=== PATIENT | female | born 1995 | race Caucasian/White ===

== ENCOUNTER 2018-07-05 23:42 | Emergency (ER) | payer SELFPAY ==
[2018-07-06] MEDS ORDERED: LIDOCAINE 1% W/EPI 1:100,000 MDV 50 ML VIAL ONE (00:03)
--- NOTE | 2018-07-06 00:31 | EDPHYS ---
Physician Documentation [facility] Name: Stephanie Machado Age: 22 yrs Sex: Female : 1995 Arrival Date: 07/05/2018 Time: 23:46 Bed 26 Private MD: ED Physician Best Caruso HPI: 07/06 00:26 This 22 yrs old Female presents to ER via Ambulatory with complaints of ps1 Abscess. 00:26 The patient presents with an abscess of the left breast. Description: The affected area ps1 is moderate sized, confluent, localized, well demarcated, fluctuant, hot, raised, swollen, tense. Onset: The symptoms/episode began/occurred 3 day(s) ago. 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 - Social history:: Smoking status: Patient uses tobacco products, smokes one pack cigarettes per day. Patient uses alcohol, but reports only rare drinking. Patient/guardian denies using IV drugs. - Ebola Screening: : No symptoms or risks identified at this time. ROS: 07/06 00:26 Constitutional: Negative for fever, chills, and weight loss, Eyes: Negative for injury, ps1 pain, redness, and discharge, Cardiovascular: Negative for chest pain, palpitations, and edema, Respiratory: Negative for shortness of breath, cough, wheezing, and pleuritic chest pain, Abdomen/GI: Negative for abdominal pain, nausea, vomiting, diarrhea, and constipation, Back: Negative for injury and pain, MS/Extremity: Negative for injury and deformity, Neuro: Negative for headache, weakness, numbness, tingling, and seizure. Skin: Positive for abscess. Exam: 00:26 Constitutional: This is a well developed, well nourished patient who is awake, alert, ps1 and in no acute distress. Head/Face: Normocephalic, atraumatic. Chest/axilla: Normal chest wall appearance and motion. Nontender with no deformity. No lesions are appreciated. Cardiovascular: Regular rate and rhythm. No gallops, murmurs, or rubs. Normal PMI, no JVD. No pulse deficits. Respiratory: Lungs have equal breath sounds bilaterally, clear to auscultation and percussion. No rales, rhonchi or wheezes noted. No increased work of breathing, no retractions or nasal flaring. Abdomen/GI: Soft, non-tender, with normal bowel sounds. No distension or tympany. No guarding or rebound. No evidence of tenderness throughout. MS/ Extremity: Pulses equal, no cyanosis. Neurovascular intact. Full, normal range of motion. 00:26 Skin: abscess, that is moderate sized, of the left breast, with fluctuance, with induration, with pointing, that is obvious. Vital Signs: 00:00 BP 138 / 92; Pulse 80; Resp 18; Temp 98.3(O); Pulse Ox 98% on R/A; Weight 129.27 kg; mg2 Height 5 ft. 10 in. (177.80 cm); Pain 5/10; 00:46 BP 133 / 80; Pulse 84; Resp 18; Temp 98; Pulse Ox 100% on R/A; Pain 0/10; mg2 00:00 Body Mass Index 40.89 (129.27 kg, 177.80 cm) mg2 Procedures: 00:26 I \T\ D: Incision and drainage was performed for an abscess of the left breast ps1 Anesthetized with 8 ml's 1% Lidocaine w/ Epi. Incised with #11 blade. Drained moderate amount purulent fluid. Loculations removed. Abscess cavity explored. Packed with iodoform gauze, Dressing: sterile 4x4 gauze, the patient tolerated the procedure well. MDM: 07/05 23:52 Patient medically screened. ps1 07/06 00:26 Data reviewed: vital signs, nurses notes, and as a result, I will discharge patient. ps1 Administered Medications: No medications were administered Disposition: 07/06/18 00:31 Discharged to Home. Impression: Left breast abscess. - Condition is Stable. - Discharge Instructions: Skin Abscess. - Prescriptions for Keflex 500 mg Oral Capsule - take 1 capsule by ORAL route every 8 hours for 10 days; 30 capsule. Tylenol- Codeine #3 300-30 mg Oral Tablet - take 2 tablet by ORAL route every 6 hours As needed; 30 tablet. Zofran 4 mg Oral Tablet - take 1 tablet by ORAL route every 12 hours As needed; 20 tablet. Bactrim DS 800- 160 mg Oral Tablet - take 1 tablet by ORAL route every 12 hours for 7 days; 14 tablet. - Medication Reconciliation Form, Thank You Letter, Antibiotic Education, Prescription Opioid Use form. - Follow up: Private Physician; When: As needed; Reason: Recheck today's complaints, Continuance of care, Re-evaluation by your physician. Follow up: Emergency Department; When: As needed; Reason: Fever > 102 F, Worsening of condition. - Problem is new. - Symptoms have improved. Signatures: Best Caruso MD MD ps1 Chas Mcdonald RN RN mg2 Corrections: (The following items were deleted from the chart) 00:51 00:31 07/06/2018 00:31 Discharged to Home. Impression: Left breast abscess. Condition mg2 is Stable. Forms are Medication Reconciliation Form, Thank You Letter, Antibiotic Education, Prescription Opioid Use. Follow up: Private Physician; When: As needed; Reason: Recheck today's complaints, Continuance of care, Re-evaluation by your physician. Follow up: Emergency Department; When: As needed; Reason: Fever > 102 F, Worsening of condition. Problem is new. Symptoms have improved. ps1
--- NOTE | 2018-07-06 00:31 | ER ---
Nurse's Notes [facility] Name: Stephanie Machado Age: 22 yrs Sex: Female : 1995 Arrival Date: 07/05/2018 Time: 23:46 Bed 26 Private MD: Diagnosis: Left breast abscess Presentation: 07/05 23:53 Presenting complaint: Patient states: she has abscess in the left breast for 1 week mg2 now. Transition of care: patient was not received from another setting of care. Onset of symptoms was June 2018. Risk Assessment: Do you want to hurt yourself or someone else? Patient reports no desire to harm self or others. Initial Sepsis Screen: Does the patient meet any 2 criteria? No. Patient's initial sepsis screen is negative. Does the patient have a suspected source of infection? No. Patient's initial sepsis screen is negative. Care prior to arrival: None. 23:53 Method Of Arrival: Ambulatory mg2 23:53 Acuity: ISIDRO 4 mg2 Triage Assessment: 07/06 00:01 General: Appears in no apparent distress. comfortable, Behavior is calm, cooperative. mg2 Pain: Complains of pain in left breast. EENT: No deficits noted. Neuro: No deficits noted. Cardiovascular: No deficits noted. Respiratory: Airway is patent Respiratory effort is even, unlabored, Respiratory pattern is regular, symmetrical. GI: No deficits noted. : No deficits noted. Derm: Skin is intact, is healthy with good turgor, Abscess located on left breast is half dollar sized. Musculoskeletal: No deficits noted. 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 - Social history:: Smoking status: Patient uses tobacco products, smokes one pack cigarettes per day. Patient uses alcohol, but reports only rare drinking. Patient/guardian denies using IV drugs. - Ebola Screening: : No symptoms or risks identified at this time. Screenin/02 00:01 Abuse screen: Denies threats or abuse. Denies injuries from another. Nutritional mg2 screening: No deficits noted. Tuberculosis screening: No symptoms or risk factors identified. Fall Risk None identified. Assessment: 00:29 General: Appears in no apparent distress. comfortable, Behavior is calm, cooperative. mg2 Pain: Complains of pain in left breast Pain does not radiate. Pain currently is 5 out of 10 on a pain scale. Quality of pain is described as aching, Pain began gradually, 1 week Is intermittent. Neuro: Level of Consciousness is awake, alert, obeys commands, Oriented to person, place, time, situation. Cardiovascular: Capillary refill < 3 seconds Patient's skin is warm and dry. Respiratory: Airway is patent Respiratory effort is even, unlabored, Respiratory pattern is regular, symmetrical. GI: No deficits noted. : No deficits noted. EENT: No deficits noted. Derm: Skin is intact, is healthy with good turgor, Skin is pink, warm \T\ dry. normal. Derm: Abscess located on left breast is half dollar sized. Musculoskeletal: No deficits noted. Vital Signs: 00:00 BP 138 / 92; Pulse 80; Resp 18; Temp 98.3(O); Pulse Ox 98% on R/A; Weight 129.27 kg; mg2 Height 5 ft. 10 in. (177.80 cm); Pain 5/10; 00:46 BP 133 / 80; Pulse 84; Resp 18; Temp 98; Pulse Ox 100% on R/A; Pain 0/10; mg2 00:00 Body Mass Index 40.89 (129.27 kg, 177.80 cm) mg2 ED Course: 07/05 23:46 Patient arrived in ED. ds1 23:47 Best Lucia MD is Attending Physician. ps1 23:53 Chas Mcdonald, FOZIA is Primary Nurse. mg2 23:55 Triage completed. mg2 07/06 00:01 Arm band placed on. mg2 00:01 Patient has correct armband on for positive identification. Placed in gown. Bed in low mg2 position. Call light in reach. Pulse ox on. NIBP on. 00:31 No provider procedures requiring assistance completed. Patient did not have IV access mg2 during this emergency room visit. Wound care: to abscess located on left breast was cleaned with with i and d done by dr. lucia, dressed with Patient tolerated well. Administered Medications: No medications were administered Outcome: 00:31 Discharge ordered by . ps1 00:50 Discharged to home ambulatory, with family. mg2 00:50 Condition: good 00:50 Discharge instructions given to patient, family, Instructed on discharge instructions, follow up and referral plans. medication usage, Demonstrated understanding of instructions, follow-up care, medications, Prescriptions given X 4. 00:51 Patient left the ED. mg2 Signatures: Desi Avalos ds1 Best Lucia MD MD ps1 Chas Mcdonald RN RN mg2
[2018-07-06 00:58] VITALS: BP 133/80; TEMP 98; O2SAT 100
== END 2018-07-06 00:51 | disposition home or self-care (01) ==
LOC: ER 23:42
DX: N61.1 Abscess of the breast and nipple (principal)
CPT/HCPCS: 99283

== ENCOUNTER 2024-08-21 19:43 | Emergency (ER) | payer BC ==
[2024-08-21] MEDS ORDERED: NA CHLORIDE 0.9% 1,000 ML ONE (20:16)
--- NOTE | 2024-08-21 20:36 | RAD REPORT ---
EXAMINATION: ONE VIEW CHEST XR CLINICAL INDICATION: Female, 29 years old.,Congestion;Cough TECHNIQUE: Frontal chest projection is submitted. Examination is limited by patient positioning and t echnique. COMPARISON: 05/17/2017 FINDINGS: Patchy right hilar airspace opacity. No pneumothorax or sizable effusion. The heart is normal in siz e. Mediastinal contours are unremarkable. IMPRESSION: Patchy right hilar airspace opacity, may relate to developing pneumonia. An underlying endobronchial mass resulting in atelectasis is less likely but would result in a similar appearance.
[2024-08-21] MEDS ORDERED: ACETAMINOPHEN 500 MG TAB ONE (20:47)
[2024-08-21] MEDS ORDERED: CEFTRIAXONE 1000 MG/VIAL ONE (20:47)
[2024-08-21 21:09] LABS: Absolute Basophils 0.1 K/uL (0-0.5); Absolute Eosinophils 0.1 K/uL (0-0.5); Absolute Lymphocytes (CBC) 2.8 K/uL (0.7-4.9); Absolute Monocytes 1.3 K/uL (0.1-1.3); Absolute Neutrophil 10.1 K/uL (1.8-8.0); Basophils % 0.6 % (0-1.3); Eosinophils % 0.5 % (0-4.4); Hematocrit 39.9 % (36.0-45.0); Hemoglobin 12.9 g/dL (12.0-15.0); Lymphocytes % 19.4 % (15.3-44.8); MCH 24.8 pg (27.0-35.0); MCHC 32.3 g/dL (32.0-36.0); MCV 76.9 fL (80-100); MPV 8.7 fL (7.6-11.3); Neutrophils % 70.5 % (41.7-73.7); Nucleated Red Blood Cells % 0.1 % (0-0); Platelets 281 thou/uL (152-406); RBC Red Blood Cell Count 5.19 M/uL (3.86-4.86); Red Cell Distribution Width 13.3 % (12.1-15.2)
[2024-08-21 21:14] LABS: PT Prothrombin Time 12.9 SECONDS (9.4-12.5); PTT, Activated Partial Thromb 33.1 SECONDS (24.3-36.9); Protime INR 1.16
[2024-08-21 21:23] LABS: AST/SGOT 11 U/L (15-37); Albumin 3.5 g/dL (3.4-5.0); Albumin/Globulin Ratio 0.8 (1.1-1.8); Alkaline Phosphatase 62 U/L (45-117); Anion Gap 11.5 mEq/L (5.0-15.0); BUN Blood Urea Nitrogen 8 mg/dL (7-18); Bicarbonate 23 mEq/L (21-32); Bilirubin Total 0.8 mg/dL (0.2-1.0); Globulin 4.5 g/dL (2.3-3.5); Glomerular Filtration Rate 86 ml/min (=/>90); Glucose Level 113 mg/dL (74-106); Potassium 3.5 mEq/L (3.5-5.1); Sodium Level 136 mEq/L (136-145)
[2024-08-21 21:25] LABS: ALT/SGPT < 14 U/L (13-56)
[2024-08-21 21:29] LABS: SARS-CoV-2 Antigen CONTROL BLUE LINE VIS/BG OK; SARS-CoV-2 Antigen Rapid Res Negative (Negative)
[2024-08-21 22:43] LABS: Specific Gravity 1.026 (1.005-1.030); Sqamous Epithelial 20-50 /HPF (None Seen); Urine Bacteria <20 /HPF (<20); Urine Bilirubin NEGATIVE (Negative); Urine Blood Negative (Negative); Urine Clarity Extremely Turbid (Clear); Urine Color Yellow (Yellow); Urine Culture Reflex Order NOT NEEDED; Urine Glucose NEGATIVE (Negative); Urine Ketones NEGATIVE (Negative); Urine Microscopic Reflex YN ORDER UMIC; Urine Mucus 1+ /HPF (None Seen); Urine Nitrite NEGATIVE (Negative); Urine Protein TRACE (Negative); Urine Urobilinogen 1+ (Normal); Urine Yeast (Budding) Trace /HPF (None Seen); Urine pH 6.5 (5.0-7.0)
[2024-08-21 22:44] LABS: Specific Gravity 1.026 (1.005-1.030)
--- NOTE | 2024-08-22 00:45 | ER ---
Nurse's Notes [facility] Name: Stephanie Machado Age: 29 yrs Sex: Female : 1995 Arrival Date: 08/21/2024 Time: 19:43 Bed 6 Private MD: Diagnosis: Pneumonia, unspecified organism Presentation: 08/21 19:48 Chief complaint: Patient states: I have pneumonia and i have been on Bactrim but i have kd3 been getting worse. My pulse ox says im dropping to 89. The provider that gave me the antibiotic did not do a chest x ray. Ebola Screen: Patient negative for fever greater than or equal to 101.5 degrees Fahrenheit, and additional compatible Ebola Virus Disease symptoms. Initial Sepsis Screen: Does the patient meet any 2 criteria? No. Patient's initial sepsis screen is negative. Does the patient have a suspected source of infection? No. Patient's initial sepsis screen is negative. Risk Assessment: Do you want to hurt yourself or someone else? Patient reports no desire to harm self or others. 19:48 Method Of Arrival: Ambulatory 3 19:48 Acuity: ISIDRO 3 kd3 19:53 Coronavirus screen: Vaccine status:. kd3 19:53 Onset of symptoms was August 18, 2024. kd3 19:53 Coronavirus screen: Vaccine status: Patient reports receiving the 1st dose of the Covid kd3 vaccine. Triage Assessment: 19:54 General: Appears in no apparent distress. Behavior is calm, cooperative. Pain: kd3 Complains of pain in chest. Respiratory: Reports cough that is Onset: The symptoms/episode began/occurred gradually, the patient has moderate shortness of breath. Historical: - Allergies: 19:54 No Known Allergies; kd3 - Immunization history:: Adult Immunizations up to date. - Infectious Disease History:: Denies. - Social history:: Smoking status: Reported history of juuling and/or vaping. Screenin:00 [facility] ED Fall Risk Assessment (Adult) History of falling in the last 3 months, tm6 including since admission No falls in past 3 months (0 pts) Confusion or Disorientation No (0 pts) Intoxicated or Sedated No (0 pts) Impaired Gait No (0 pts) Mobility Assist Device Used No (0 pt) Altered Elimination No (0 pt) Score/Fall Risk Level 0 - 2 = Low Risk Oriented to surroundings, Maintained a safe environment, Educated pt \T\ family on fall prevention, incl call for assistance when getting out of bed. Abuse screen: Denies threats or abuse. Denies injuries from another. Nutritional screening: No deficits noted. Tuberculosis screening: No symptoms or risk factors identified. Assessment: 20:00 General: Appears in no apparent distress. Behavior is calm, cooperative. Pain: Denies tm6 pain. Neuro: Level of Consciousness is awake, alert, obeys commands, Oriented to person, place, time, situation. Cardiovascular: Patient's skin is warm and dry. Rhythm is sinus tachycardia. Respiratory: Reports shortness of breath Airway is patent Respiratory effort is even, unlabored, Breath sounds are diminished. GI: No signs and/or symptoms were reported involving the gastrointestinal system. Abdomen is round. : No signs and/or symptoms were reported regarding the genitourinary system. EENT: No signs and/or symptoms were reported regarding the EENT system. Derm: No signs and/or symptoms reported regarding the dermatologic system. Musculoskeletal: No signs and/or symptoms reported regarding the musculoskeletal system. 21:23 Reassessment: Patient and/or family updated on plan of care and expected duration. Pain tm6 level reassessed. Patient is alert, oriented x 3, equal unlabored respirations, skin warm/dry/pink. Vital Signs: 19:53 BP 142 / 83; Pulse 122; Resp 18; Temp 99.4; Pulse Ox 96% ; Weight 144.24 kg; Height 5 kd3 ft. 7 in. ; Pain 4/10; 21:23 Pulse 105; Pulse Ox 96% on R/A; Pain 0/10; tm6 23:50 BP 109 / 77; Pulse 97; Resp 16; Temp 98.5(O); Pulse Ox 96% on R/A; dd2 08/22 01:24 BP 121 / 80; Pulse 89; Resp 17; Temp 98.6; Pulse Ox 96% on R/A; dd2 08/21 19:53 Body Mass Index 49.81 (144.24 kg, 170.18 cm) kd3 08/21 19:53 Pain Scale: Adult kd3 21:23 Pain Scale: Adult tm6 ED Course: 08/21 19:45 Patient arrived in ED. mr 19:46 Therese Vaughan [facility]-C [facility]. kb 19:46 Bianca Zamora MD is Attending Physician. kb 19:50 Triage completed. kd3 19:54 Arm band placed on left wrist. kd3 20:00 Patient has correct armband on for positive identification. Placed in gown. Bed in low tm6 position. Call light in reach. Side rails up X 1. Provided Education on: use of call lawson. Client placed on continuous cardiac and pulse oximetry monitoring. NIBP monitoring applied. quality assurance monitor final on. Pulse ox on. NIBP on. Door closed. Noise minimized. Warm blanket given. Pillow given. 20:15 Jay Azevedo, RN is Primary Nurse. tm6 20:28 Chest Single View XRAY In Process Unspecified. EDMS 20:45 First set of blood cultures drawn by me, Second set of blood cultures drawn by me, ay COVID swab sent to lab. Flu and/or RSV swab sent to lab. 21:12 Inserted saline lock: 20 gauge in right antecubital area, using aseptic technique. ay 21:14 SARS-COV-2 Antigen Rapid Sent. ay 21:14 Flu Sent. ay 21:14 Blood Culture Adult (2) Sent. ay 21:14 CBC with Diff Sent. ay 21:14 CMP Sent. ay 21:14 Lactate w/ 2H reflex if indic. Sent. ay 21:14 Protime (+inr) Sent. ay 21:14 Ptt, Activated Sent. ay 22:41 Chest For Pe Angio In Process Unspecified. EDMS 08/22 01:24 No provider procedures requiring assistance completed. IV discontinued, intact, dd2 bleeding controlled, No redness/swelling at site. Pressure dressing applied. Administered Medications: 08/21 20:52 Drug: NS 0.9% IV 1000 ml IV at 1000 ml once; to be given as a bolus over 60 minutes dd2 Route: IV; Rate: 1000 ml; Site: right antecubital; 21:07 Follow up: Response: No adverse reaction dd2 21:52 Follow up: IV Status: Completed infusion; IV Intake: 1000ml dd2 20:52 Drug: Rocephin IV 1 grams IV at calculated rate once; Given slow IV push per pharmacy dd2 instructions Route: IV; Rate: calculated rate; Site: right antecubital; 21:02 Follow up: IV Status: Completed infusion; IV Intake: 10ml dd2 21:07 Follow up: Response: No adverse reaction dd2 20:52 Drug: Acetaminophen PO 1000 mg PO once Route: PO; dd2 21:22 Follow up: Response: No adverse reaction dd2 08/22 01:23 Drug: AZITHromycin PO 500 mg PO once Route: PO; dd2 01:23 Follow up: Response: Medication administered at discharge. dd2 Medication: 08/21 20:00 VIS not applicable for this client. tm6 Intake: 21:02 IV: 10ml; Total: 10ml. dd2 21:52 IV: 1000ml; Total: 1010ml. dd2 Outcome: 08/22 00:45 Discharge ordered by . shannon 01:24 Discharged to home ambulatory, dd2 01:24 Condition: stable 01:24 Discharge instructions given to patient, Instructed on discharge instructions, follow up and referral plans. medication usage, Demonstrated understanding of instructions, follow-up care, medications, Prescriptions given X 1, 01:27 Patient left the ED. dd2 Signatures: Dispatcher [employer] EDMS Therese Vaughan, LITHOGRAPHIC PRINTING MACHINIST-C LITHOGRAPHIC PRINTING MACHINIST-CkArabella Garcia, Reg Reg mr Josselyn Dale, RN RN kd3 Jay Azevedo RN RN tm6 HU UREÑA RN RN dd2 Sarah Arce RN FOZIA ay
--- NOTE | 2024-08-22 00:45 | EDPHYS ---
Physician Documentation [facility] Name: Stephanie Machado Age: 29 yrs Sex: Female : 1995 Arrival Date: 08/21/2024 Time: 19:43 Bed 6 Private MD: ED Physician Bianca Zamora HPI: 08/21 19:50 This 29 yrs old Female presents to ER via Ambulatory with complaints of Breathing kb Difficulty. 19:50 Patient is a 29-year-old female who presents for fever, bodyaches, shortness of breath kb and cough that started 3 days ago. States she was seen by PCP yesterday and prescribed bactrim for pneumonia. Symptoms have continued to progress. Historical: - Allergies: 19:54 No Known Allergies; kd3 - Immunization history:: Adult Immunizations up to date. - Infectious Disease History:: Denies. - Social history:: Smoking status: Reported history of juuling and/or vaping. ROS: 21:11 Constitutional: As per HPI kb Exam: 21:11 Constitutional: This is a well developed, well nourished patient who is awake, alert, kb and in no acute distress. Head/Face: Normocephalic, atraumatic. ENT: Moist Mucous membranes Cardiovascular: Regular rate Respiratory: Respirations even and unlabored. No increased work of breathing. Talking in full sentences Abdomen/GI: Soft, non-tender. No distention Skin: Warm, dry with normal turgor. Normal color. MS/ Extremity: Pulses equal, no cyanosis. Neurovascular intact. Full, normal range of motion. Neuro: Awake and alert, GCS 15, oriented to person, place, time, and situation. 21:22 ECG was reviewed by the Attending Physician. kb Vital Signs: 19:53 BP 142 / 83; Pulse 122; Resp 18; Temp 99.4; Pulse Ox 96% ; Weight 144.24 kg; Height 5 kd3 ft. 7 in. ; Pain 4/10; 21:23 Pulse 105; Pulse Ox 96% on R/A; Pain 0/10; tm6 23:50 BP 109 / 77; Pulse 97; Resp 16; Temp 98.5(O); Pulse Ox 96% on R/A; dd2 08/22 01:24 BP 121 / 80; Pulse 89; Resp 17; Temp 98.6; Pulse Ox 96% on R/A; dd2 08/21 19:53 Body Mass Index 49.81 (144.24 kg, 170.18 cm) kd3 08/21 19:53 Pain Scale: Adult kd3 21:23 Pain Scale: Adult tm6 MDM: 08/21 19:47 Medical Screening Exam initiated 21:11 Data reviewed: vital signs, nurses notes. 08/22 00:45 Differential diagnosis: Bronchitis pneumonia, pulmonary edema, Pulmonary Embolism flu, kb covid. Consideration of Admission/Observation Escalation of care including admission/observation considered. admission considered but resp even and unlabored, oxygen sat maintained at 96% on room air during stay. Pt educated on strict return precautions. . Management of patient was discussed with the following: Dr Larson. Counseling: I had a detailed discussion with the patient and/or guardian regarding the historical points, exam findings, and any diagnostic results supporting the discharge/admit diagnosis, lab results, radiology results, the need for outpatient follow up, a family practitioner, to return to the emergency department if symptoms worsen or persist or if there are any questions or concerns that arise at home. 08/21 19:55 Order name: Blood Culture Adult (2) kb 08/21 19:55 Order name: CBC with Diff; Complete Time: 21:35 kb 08/21 19:55 Order name: CMP; Complete Time: 21:35 kb 08/21 19:55 Order name: Lactate w/ 2H reflex if indic.; Complete Time: 21:35 kb 08/21 19:55 Order name: Protime (+inr); Complete Time: 21:35 kb 08/21 19:55 Order name: Ptt, Activated; Complete Time: 21:35 kb 08/21 19:55 Order name: Flu; Complete Time: 21:35 kb 08/21 19:55 Order name: SARS-COV-2 Antigen Rapid; Complete Time: 21:35 kb 08/21 22:16 Order name: Test, Urine; Complete Time: 23:31 kb 08/21 22:16 Order name: Urinalysis w/ reflexes; Complete Time: 23:31 kb 08/21 19:55 Order name: Chest Single View XRAY; Complete Time: 20:38 kb 08/21 22:41 Order name: Chest For Pe Angio EDMS 08/21 19:55 Order name: EKG; Complete Time: 19:55 kb 08/21 19:55 Order name: Cardiac monitoring; Complete Time: 21:11 kb 08/21 19:55 Order name: EKG - Nurse/Tech; Complete Time: 21:11 kb 08/21 19:55 Order name: IV Saline Lock - Large Bore; Complete Time: 20:54 kb 08/21 19:55 Order name: Labs collected and sent; Complete Time: 20:55 kb 08/21 19:55 Order name: O2 Per Protocol; Complete Time: 20:55 kb 08/21 19:55 Order name: O2 Sat Monitoring; Complete Time: 20:55 kb 08/21 19:55 Order name: Vital Signs; Complete Time: 20:55 kb EC/18 21:22 Rate is 116 beats/min. Rhythm is regular. QRS Aiken is Normal. FL interval is normal at kb 158 msec. QRS interval is normal at 84 msec. QT interval is normal at 444 msec. Administered Medications: 20:52 Drug: NS 0.9% IV 1000 ml IV at 1000 ml once; to be given as a bolus over 60 minutes dd2 Route: IV; Rate: 1000 ml; Site: right antecubital; 21:07 Follow up: Response: No adverse reaction dd2 21:52 Follow up: IV Status: Completed infusion; IV Intake: 1000ml dd2 20:52 Drug: Rocephin IV 1 grams IV at calculated rate once; Given slow IV push per pharmacy dd2 instructions Route: IV; Rate: calculated rate; Site: right antecubital; 21:02 Follow up: IV Status: Completed infusion; IV Intake: 10ml dd2 21:07 Follow up: Response: No adverse reaction dd2 20:52 Drug: Acetaminophen PO 1000 mg PO once Route: PO; dd2 21:22 Follow up: Response: No adverse reaction dd2 08/22 01:23 Drug: AZITHromycin PO 500 mg PO once Route: PO; dd2 01:23 Follow up: Response: Medication administered at discharge. dd2 Disposition Summary: 08/22/24 00:45 Discharge Ordered Notes: Location: Home Condition: Stable kb Diagnosis - Pneumonia, unspecified organism kb Followup: kb - With: Emergency Department - When: As needed - Reason: Worsening of condition Followup: kb - With: Private Physician - When: 2 - 3 days - Reason: Recheck today's complaints, Continuance of care, Re-evaluation by your physician Discharge Instructions: - Discharge Summary Sheet kb - Community-Acquired Pneumonia, Adult, [id number] kb Forms: - Medication Reconciliation Form kb - Antibiotic Education kb - Prescription Opioid Use kb - Patient Portal Instructions kb - Leadership Thank You Letter kb - Work release form dd2 Prescriptions: - Zithromax 500 mg Oral Tablet - take 1 tablet ORAL route once daily for 5 days; 5 tablet; Refills: 0, Product kb Selection Permitted Signatures: Dispatcher [employer] EDMS Therese Vaughan FNP-C FNP-Ckb Doucette, Kyli RN RN kd3 HU UREÑA RN RN dd2 Corrections: (The following items were deleted from the chart) 08/21 21:11 19:50 fever, bodyaches, shortness of breath and cough that started 3 days ago. States kb she was seen by PCP yesterday and prescribed bactrim for pneumonia. Symptoms have continued to progress. kb 22:41 22:15 Thorax Wo Con+CT.RAD.BRZ ordered. EDMS EDMS
--- NOTE | 2024-08-22 00:45 | RAD REPORT ---
EXAM DESCRIPTION: CT CHEST ANGIOGRAPHY WITH IV CONTRAST CLINICAL HISTORY: Dyspnea. COMPARISON: XR Chest 08/22/2024 (report only) TECHNIQUE: Contiguous axial images of the chest were obtained from the thoracic inlet to the level of the upper abdomen after the administration of intravenous contrast followed by reconstruction images. Volume rendering images were performed. This exam was performed according to our departmental dose-optimization program, which includes autom ated exposure control, adjustment of the mA and/or kV according to patient size and/or use of iterative reconstruction technique. FINDINGS: Linear opacities within the lungs may represent scar versus subsegmental atelectasis. Abnormal parenc hymal opacity within the right upper lung with air bronchogram may represent an infectious process. There is a subcarinal lymph node measuring approximately 1.3 cm which could represent a reactive node . The aorta is of normal contour and tapering. There is no discrete filling defect within the pulmonary arterial system to suggest pulmonary emboli. There is no pericardial or pleural fluid collection. There is no pneumothorax. Limited images of the upper abdomen are within normal limits. IMPRESSION: 1. Abnormal parenchymal opacity within the right upper lung worrisome for an infectious process. 2. No CT evidence of acute pulmonary emboli. Electronically signed by: Douglas Leung MD 08/22/2024 12:00 AM [facility] Due to temporary technical issues with the PACS/[employer] reporting system, reports are being sindy d by the in-house radiologist without review as a courtesy to ensure prompt reporting the interpreting radiologist is fully responsible for the content of the report. Transcribed Date/Time: 08/22/2024 12:44 AM
[2024-08-22] MEDS ORDERED: AZITHROMYCIN 250 MG TAB ONE (01:20)
[2024-08-22 02:00] VITALS: O2SAT 96
[2024-08-22 02:05] VITALS: BP 121/80; TEMP 98.6
--- NOTE | 2024-08-23 15:44 | EKG ---
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
== END 2024-08-22 01:27 | disposition home or self-care (01) ==
LOC: ER 19:43
DX: J18.9 Pneumonia, unspecified organism (principal); Z11.52 Encounter for screening for COVID-19; F17.290 Nicotine dependence, other tobacco product, uncomplicated
CPT/HCPCS: 96361; 93005; 87040 ×2; 85025; 81001; 36415; 81025; 85610; 83605; 85730; 80053; 87804 ×2; 71275; 71045; 96374; 99285; 87811; Q9967; J7030; J0696